=== PATIENT | male | born 1975 | race Caucasian/White ===

== ENCOUNTER → 2017-07-12 | Outpatient (CLI) | payer BC ==
[~2017-07-12] MED LIST: AUGMENTIN 875 M1 TAB PO; CLARITIN10 MG PO; CLEOCIN150 MG PO; CYMBALTA20 MG PO; HYDROCODONE BIT1 T11 PO; KEFLEX500 MG PO; MEDROL DOSEPAK4 MG PO; ULTRAM50 MG PO
== END | disposition home or self-care (01) ==
LOC: RAD 12:12
DX: S23.9XXA Sprain of unspecified parts of thorax, initial encounter (principal); S29.019A Strain of muscle and tendon of unspecified wall of thorax, initial encounter; X58.XXXA Exposure to other specified factors, initial encounter; Y93.89 Activity, other specified; Y92.89 Other specified places as the place of occurrence of the external cause; Y99.8 Other external cause status

== ENCOUNTER 2019-02-25 04:20 | Emergency (ER) | payer SELFPAY ==
[~2019-02-25] VITALS: Ht 182.8 cm; Wt 99.8 kg
[2019-02-25 04:41] VITALS: BP 172/92
== END 2019-02-25 05:56 | disposition home or self-care (01) ==
LOC: ED 04:20
DX: H10.213 Acute toxic conjunctivitis, bilateral (principal)

== ENCOUNTER → 2021-03-14 | Outpatient (CLI) | payer BC ==
[2021-03-14 14:49] LABS: BASO % 0.6 % (0.0-1.0); EOS # 0.2 10*3/uL (0.0-0.4); EOS % 3.7 % (1.0-4.0); HEMATOCRIT 39.7 % (42.0-52.0); LYMPH # 1.6 10*3/uL (1.3-4.4); LYMPH % 29.3 % (27.0-41.0); MEAN CELL VOLUME 90.4 fl (80.0-94.0); MEAN CORPUSCULAR HGB 29.8 pg (27.0-31.0); MEAN PLATELET VOLUME 11.7 fl (9.6-12.3); MONO # 0.4 10*3/uL (0.1-1.0); MONO % 7.6 % (3.0-9.0); NEUT # 3.1 10*3/uL (2.3-7.9); NEUT % 58.6 % (47.0-73.0); PLATELET COUNT AUTOMATED 230 10*3/uL (130-400); RED BLOOD COUNT 4.39 10*6/uL (4.50-5.90); RED CELL DISTRI WIDTH 11.9 % (0-14.5); WHITE BLOOD COUNT 5.4 10*3/uL (4.8-10.8)
[2021-03-14 14:55] LABS: ALBUMIN 3.4 gm/dl (3.1-4.5); ALKALINE PHOSPHATASE 68 U/L (45-117); BUN 19 mg/dl (7-24); CHLORIDE 108 mmol/L (98-107); CHOLESTEROL 264 mg/dL (<200); CREATININE 1.05 mg/dL (0.70-1.30); GAMMA GLUTAMYL TRANSPEPTIDASE 34 U/L (15-85); IRON 90 ug/dL (65-175); LDL CHOLESTEROL 154 mg/dL (9-159); POTASSIUM 4.2 mmol/L (3.5-5.1); SGOT/AST 16 IU/L (3-35); SGPT/ALT 26 U/L (12-78); SODIUM 141 mmol/L (136-145); TOTAL IRON BINDING CAPACITY 343 ug/dl (250-450); TOTAL PROTEIN 6.9 gm/dL (6.4-8.2); TRIGLYCERIDES 273 mg/dl (<150); URIC ACID 6.4 mg/dL (3.5-7.2)
[2021-03-14 15:58] LABS: FERRITIN 153.5 ng/mL (22.0-322.0); VITAMIN D, 25-HYDROXY 44.6 ng/mL (30-100)
[2021-03-15 08:08] LABS: RHEUMATOID ARTHRITIS FACTOR <10.0 IU/mL (0.0-13.9)
[2021-03-15 12:18] LABS: BILIRUBIN Negative (Negative); BLOOD Negative (Negative); CLARITY Clear (Clear); COLOR Yellow (Yellow); GLUCOSE Negative (Negative); KETONE Negative (Negative); LEUKO ESTERASE Negative (Negative); NITRITE Negative (Negative); PH 5.5 (4.5-8.0); SPECIFIC GRAVITY 1.015 (1.001-1.030); UROBILINOGEN 0.2 E.U./dl (0.0-1.0)
[2021-03-15 12:32] LABS: EPITHELIAL CELLS 0-2
[2021-03-15 16:08] LABS: ANTI-DSDNA ANTIBODIES <1 IU/mL (0-9)
== END | disposition home or self-care (01) ==
LOC: LAB 14:07
PROVIDERS: ATTEND Family Medicine
DX: E55.9 Vitamin D deficiency, unspecified (principal); E78.5 Hyperlipidemia, unspecified; R79.89 Other specified abnormal findings of blood chemistry; R53.83 Other fatigue; R74.8 Abnormal levels of other serum enzymes

== ENCOUNTER 2021-12-16 05:34 | Emergency (ER) | payer BC ==
[~2021-12-16] VITALS: Ht 182.8 cm; Wt 95.3 kg
[2021-12-16 05:39] VITALS: BP 125/69
[2021-12-16] MEDS ORDERED: ADDERALL XR20 MG PO (05:41)
[2021-12-16] MEDS ORDERED: SEPTDS PO (05:56)
== END 2021-12-16 06:18 | disposition home or self-care (01) ==
LOC: ED 05:34
DX: L02.414 Cutaneous abscess of left upper limb (principal)

== ENCOUNTER 2021-12-17 03:27 | Inpatient (IN) | payer BC ==
[2021-12-17] VITALS (7 sets, daily range): BP systolic 127–143; BP diastolic 60–77
[~2021-12-17] VITALS: Ht 182.9 cm; Wt 97.1 kg
[~2021-12-17 03:27] MED LIST changes: +ADDERALL XR20 MG PO; +SEPTDS PO
[2021-12-17 04:21] LABS: BASO % 0.2 % (0.0-1.0); EOS # 0.1 10*3/uL (0.0-0.4); EOS % 0.9 % (1.0-4.0); HEMATOCRIT 34.7 % (42.0-52.0); LYMPH # 0.8 10*3/uL (1.3-4.4); LYMPH % 9.1 % (27.0-41.0); MEAN CELL VOLUME 89.7 fl (80.0-94.0); MEAN CORPUSCULAR HGB 30.2 pg (27.0-31.0); MEAN CORPUSCULAR HGB CONC 33.7 g/dl (33.0-37.0); MEAN PLATELET VOLUME 10.3 fl (9.6-12.3); MONO # 0.9 10*3/uL (0.1-1.0); MONO % 10.6 % (3.0-9.0); PLATELET COUNT AUTOMATED 196 10*3/uL (130-400); RED BLOOD COUNT 3.87 10*6/uL (4.50-5.90); WHITE BLOOD COUNT 8.9 10*3/uL (4.8-10.8)
[2021-12-17 04:37] LABS: ALKALINE PHOSPHATASE 71 U/L (45-117); BUN 9 mg/dl (7-24); CHLORIDE 106 mmol/L (98-107); CREATININE 0.96 mg/dL (0.70-1.30); POTASSIUM 3.9 mmol/L (3.5-5.1); SGOT/AST 16 IU/L (3-35); SGPT/ALT 19 U/L (12-78); SODIUM 137 mmol/L (136-145); TOTAL PROTEIN 6.3 gm/dL (6.4-8.2)
[2021-12-17 06:17] LABS: THYROID STIM HORMONE (HS) 0.742 uIU/ml (0.358-4.75)
[2021-12-17 06:30] LABS: ACT PARTIAL THROMBO TIME 30.5 SECONDS (20.0-32.1); INTERNATIONAL NORM RATIO 0.9 (2.0-3.5)
[2021-12-17 07:22] LABS: VITAMIN D, 25-HYDROXY 34.3 ng/mL (30-100)
[2021-12-18] VITALS (9 sets, daily range): BP systolic 111–151; BP diastolic 58–81
[2021-12-18 07:52] LABS: EOS # 0.4 10*3/uL (0.0-0.4); EOS % 5.2 % (1.0-4.0); HEMATOCRIT 34.8 % (42.0-52.0); LYMPH # 0.5 10*3/uL (1.3-4.4); LYMPH % 6.7 % (27.0-41.0); MEAN CELL VOLUME 90.2 fl (80.0-94.0); MEAN CORPUSCULAR HGB 30.1 pg (27.0-31.0); MEAN CORPUSCULAR HGB CONC 33.3 g/dl (33.0-37.0); MEAN PLATELET VOLUME 10.7 fl (9.6-12.3); MONO # 0.6 10*3/uL (0.1-1.0); MONO % 7.8 % (3.0-9.0); NEUT # 5.6 10*3/uL (2.3-7.9); PLATELET COUNT AUTOMATED 164 10*3/uL (130-400); RED BLOOD COUNT 3.86 10*6/uL (4.50-5.90); WHITE BLOOD COUNT 7.1 10*3/uL (4.8-10.8)
[2021-12-18 08:14] LABS: BUN 6 mg/dl (7-24); CHLORIDE 107 mmol/L (98-107); CREATININE 1.08 mg/dL (0.70-1.30); POTASSIUM 3.6 mmol/L (3.5-5.1); SGOT/AST 12 IU/L (3-35); SGPT/ALT 15 U/L (12-78); SODIUM 137 mmol/L (136-145); TOTAL PROTEIN 5.8 gm/dL (6.4-8.2)
[2021-12-18 08:15] LABS: ALKALINE PHOSPHATASE 62 U/L (45-117)
[2021-12-19] VITALS: BP 128/74
[2021-12-19 06:22] LABS: EOS # 0.3 10*3/uL (0.0-0.4); EOS % 7.5 % (1.0-4.0); LYMPH # 0.4 10*3/uL (1.3-4.4); LYMPH % 9.3 % (27.0-41.0); MEAN CELL VOLUME 91.6 fl (80.0-94.0); MEAN CORPUSCULAR HGB 30.7 pg (27.0-31.0); MEAN CORPUSCULAR HGB CONC 33.5 g/dl (33.0-37.0); MEAN PLATELET VOLUME 10.6 fl (9.6-12.3); MONO # 0.5 10*3/uL (0.1-1.0); MONO % 11.6 % (3.0-9.0); NEUT # 3.1 10*3/uL (2.3-7.9); NEUT % 71.4 % (47.0-73.0); PLATELET COUNT AUTOMATED 171 10*3/uL (130-400); RED BLOOD COUNT 3.71 10*6/uL (4.50-5.90); RED CELL DISTRI WIDTH 11.8 % (0-14.5); WHITE BLOOD COUNT 4.4 10*3/uL (4.8-10.8)
[2021-12-19 06:39] LABS: BUN 8 mg/dl (7-24); CHLORIDE 108 mmol/L (98-107); POTASSIUM 3.8 mmol/L (3.5-5.1); SODIUM 138 mmol/L (136-145)
[2021-12-19 08:00] VITALS: BP 125/79
[2021-12-19] MEDS ORDERED: VIBRA-TAB100 MG PO (11:14)
[2021-12-19 11:59] VITALS: BP 129/68
[2021-12-19 16:00] VITALS: BP 159/69
[2021-12-19 20:00] VITALS: BP 141/70
== END 2021-12-20 00:09 | disposition left against medical advice (07) | DRG 872 ==
LOC: ED 03:27 → EDHOLD 05:18 → 4E 05:18
PROVIDERS: Emergency Medicine; Hospitalist; Internal Medicine; ADMIT Emergency Medicine; ATTEND Emergency Medicine
PROC: 0H9EXZZ Drainage of Left Lower Arm Skin, External Approach (ICD-10-PCS; principal; 2021-12-18)
DX: A41.9 Sepsis, unspecified organism (principal); E44.0 Moderate protein-calorie malnutrition; L03.114 Cellulitis of left upper limb; L02.414 Cutaneous abscess of left upper limb; D64.9 Anemia, unspecified; F90.9 Attention-deficit hyperactivity disorder, unspecified type; R73.9 Hyperglycemia, unspecified; E83.39 Other disorders of phosphorus metabolism; Z53.29 Procedure and treatment not carried out because of patient's decision for other reasons; Z68.29 Body mass index [BMI] 29.0-29.9, adult

== ENCOUNTER 2022-09-30 08:30 | Emergency (ER) | payer BC ==
[~2022-09-30] VITALS: Ht 182.8 cm; Wt 97.5 kg
[~2022-09-30 08:30] MED LIST changes: +VIBRA-TAB100 MG PO
[2022-09-30 08:41] VITALS: BP 142/90
[2022-09-30 09:06] LABS: BASO % 0.5 % (0.0-1.0); EOS # 0.3 10*3/uL (0.0-0.4); EOS % 5.3 % (1.0-4.0); HEMATOCRIT 41.7 % (42.0-52.0); LYMPH # 1.5 10*3/uL (1.3-4.4); LYMPH % 27.3 % (27.0-41.0); MEAN CELL VOLUME 94.6 fl (80.0-94.0); MEAN CORPUSCULAR HGB 30.6 pg (27.0-31.0); MEAN CORPUSCULAR HGB CONC 32.4 g/dl (33.0-37.0); MEAN PLATELET VOLUME 10.4 fl (9.6-12.3); MONO # 0.5 10*3/uL (0.1-1.0); MONO % 9.1 % (3.0-9.0); NEUT # 3.2 10*3/uL (2.3-7.9); NEUT % 57.6 % (47.0-73.0); PLATELET COUNT AUTOMATED 231 10*3/uL (130-400); RED BLOOD COUNT 4.41 10*6/uL (4.50-5.90); RED CELL DISTRI WIDTH 11.5 % (0-14.5); WHITE BLOOD COUNT 5.6 10*3/uL (4.8-10.8)
[2022-09-30 09:18] LABS: ACT PARTIAL THROMBO TIME 27.3 SECONDS (20.0-32.1); INTERNATIONAL NORM RATIO 0.9 (2.0-3.5)
[2022-09-30 09:24] LABS: ALKALINE PHOSPHATASE 62 U/L (46-116); BUN 14 mg/dl (9-23); CHLORIDE 105 mmol/L (98-107); LIPASE 67 U/L (12-53); POTASSIUM 4.1 mmol/L (3.4-5.1); SGPT/ALT 17 U/L (10-49); TOTAL PROTEIN 6.6 gm/dL (6.0-8.0)
[2022-09-30] MEDS ORDERED: NITROSTAT0.4 MG PO (10:33)
== END 2022-09-30 10:44 | disposition left against medical advice (07) ==
LOC: ED 08:30
PROVIDERS: Internal Medicine
DX: R07.89 Other chest pain (principal); F32.A Depression, unspecified; Z90.49 Acquired absence of other specified parts of digestive tract; Z98.890 Other specified postprocedural states

== ENCOUNTER 2024-01-27 02:02 | Emergency (ER) | payer BC ==
[~2024-01-27] VITALS: Ht 182.8 cm; Wt 95.3 kg
[~2024-01-27 02:02] MED LIST changes: +NITROSTAT0.4 MG PO
[2024-01-27 02:18] VITALS: BP 144/82
[2024-01-27] MEDS ORDERED: Tetracaine Hydrochloride 0.5% 4 ML BOT OPH ONE (02:30)
[2024-01-27] MEDS ORDERED: Dexamethasone/Tobramycin OPHTHALMIC 2.5 ML BOTTLE OPH ONE (02:30)
== END 2024-01-27 02:32 | disposition home or self-care (01) ==
LOC: ED 02:02
DX: H16.133 Photokeratitis, bilateral (principal); Z79.899 Other long term (current) drug therapy; Z98.890 Other specified postprocedural states; Z90.49 Acquired absence of other specified parts of digestive tract